=== PATIENT | female | born 1950 | race Hispanic/Latino ===

== ENCOUNTER 2016-10-28 09:06 | Outpatient (CLI) | payer OTHER, MEDICARE ==
--- NOTE | 2016-10-28 15:27 | Mammography Report ---
BILATERAL DIGITAL SCREENING MAMMOGRAM with CAD: 10/28/16 09:06:00 CLINICAL: Routine screening. COMPARISON:08/09/15 FINDINGS: The breasts are heterogeneously dense, which may obscure small masses. A left focal asymmetry is new and requires additional imaging.No architectural distortion or suspicious calcifications.The right breast is negative. IMPRESSION: Left focal asymmetry requiring further workup. BI-RADS CATEGORY: 0 -- Additional Imaging Evaluation Required RECOMMENDATION: Recall for left lateralmedial and spot compression MLO and CC views and left breast ultrasound if needed. ACR BI-RADS MAMMOGRAPHIC CODES: 0 = Needs additional imaging evaluation; 1 = Negative; 2 = Benign; 3 = Probably benign; 4 = Suspicious; 5 = Malignant; 6 = Known biopsy-proven malignancy COMMENT: 1. Dense breast tissue, i.e., adenosis, fibrocystic changes, etc., may obscure an underlying neoplasm. 2. Approximately 10% of cancers are not detected with mammography. 3. A negative mammography report should not delay biopsy if a clinically suspicious mass is present. COMMENT: Patient follow-up letters are generated via our [employer] application.
== END 2016-10-28 09:07 | disposition home or self-care (01) ==
LOC: SPVWC 09:06
PROVIDERS: ATTEND Internal Medicine
DX: Z12.31 Encounter for screening mammogram for malignant neoplasm of breast (principal)
CPT/HCPCS: 77067; G0202

== ENCOUNTER 2016-11-11 08:05 | Outpatient (CLI) | payer OTHER, MEDICARE ==
--- NOTE | 2016-11-11 10:21 | Ultrasound Report ---
LEFT DIGITAL DIAGNOSTIC MAMMOGRAM and LEFT BREAST ULTRASOUND: 11/11/16 08:05:00 CLINICAL: Recall for asymmetry. COMPARISON:10/28/16 FINDINGS: A spot compression MLO and CC views were performed. Near complete effacement of asymmetry on both views. Ultrasound of the left breast (including all four quadrants and the retroareolar area) was performed. A cluster of tiny cysts at 11 o'clock 4 cm from nipple measures 7 x 4 x 6 mm and correlates with the mammographic density. No solid mass or shadowing. IMPRESSION: A probably benign cystic cluster at 11 o'clock left breast. BI-RADS CATEGORY: 3 - - Probably Benign RECOMMENDATION: Six month followup left mammogram and left breast ultrasound. ACR BI-RADS MAMMOGRAPHIC CODES: 0 = Needs additional imaging evaluation; 1 = Negative; 2 = Benign; 3 = Probably benign; 4 = Suspicious; 5 = Malignant; 6 = Known biopsy-proven malignancy COMMENT: 1. Dense breast tissue, i.e., adenosis, fibrocystic changes, etc., may obscure an underlying neoplasm. 2. Approximately 10% of cancers are not detected with mammography. 3. A negative mammography report should not delay biopsy if a clinically suspicious mass is present. COMMENT: Patient follow-up letters are generated by our [employer] application.
== END 2016-11-11 08:06 | disposition home or self-care (01) ==
LOC: SPVWC 08:05
PROVIDERS: ATTEND Internal Medicine
DX: N60.02 Solitary cyst of left breast (principal); R92.8 Other abnormal and inconclusive findings on diagnostic imaging of breast
CPT/HCPCS: 76641; G0206

== ENCOUNTER 2017-05-03 10:14 | Outpatient (CLI) | payer OTHER, MEDICARE ==
--- NOTE | 2017-05-03 10:58 | Mammography Report ---
LEFT DIGITAL DIAGNOSTIC MAMMOGRAM with CAD: 05/03/17 10:14:00 CLINICAL: Follow-up asymmetry. COMPARISON:11/11/16 FINDINGS: The previously described asymmetry has resolved. No mass, architectural distortion or suspicious calcifications. IMPRESSION: Negative mammogram. BI-RADS CATEGORY: 1 - - Negative RECOMMENDATION: Return to routine mammographic screening. ACR BI-RADS MAMMOGRAPHIC CODES: 0 = Needs additional imaging evaluation; 1 = Negative; 2 = Benign; 3 = Probably benign; 4 = Suspicious; 5 = Malignant; 6 = Known biopsy-proven malignancy COMMENT: 1. Dense breast tissue, i.e., adenosis, fibrocystic changes, etc., may obscure an underlying neoplasm. 2. Approximately 10% of cancers are not detected with mammography. 3. A negative mammography report should not delay biopsy if a clinically suspicious mass is present. COMMENT: Patient follow-up letters are generated by our [employer] application.
== END 2017-05-03 10:15 | disposition home or self-care (01) ==
LOC: SPVWC 10:14
PROVIDERS: ATTEND Internal Medicine
DX: R92.8 Other abnormal and inconclusive findings on diagnostic imaging of breast (principal)
CPT/HCPCS: G0206-LT